=== PATIENT | female | born 1950 | race Caucasian/White ===

== ENCOUNTER 2016-04-09 18:07 | Emergency (ER) | payer OTHER ==
[2016-04-09 18:19] VITALS: BP 134/88; TEMP 100.7; BMI 20.9
--- NOTE | 2016-04-09 18:23 | ED.PDOC ---
General ED Provider: Dr. AZRA MARIE JR Chief Complaint: Respiratory Complaint Stated Complaint: GENERAL WEAKNESS FOR THE PAST FOUR DAYS WITH SOB. PAIN ALL OVER. BONES HURT. FELL LAST NIGHT IN BEDROOM. HIT THE BACK OF MY HEAD. also struck left lower back has pain patch on it[ End ]since 04/06 100.7 121 26 90% 134/88 10 Time Seen by Physician: 18:53 Mode of Arrival: Walk-In Information Source: Patient, Family Exam Limitations: No limitations Primary Care Provider: NEREIDA MORRIS Nursing and Triage Documentation Reviewed and Agree: No Review of Systems - Review Of Systems Constitutional: Reports: Chills, Malaise, Weakness, Loss of appetite Eyes: Reports: No symptoms Ears, Nose, Mouth, Throat: Reports: No symptoms Respiratory: Reports: Cough, Short of air Cardiac: Reports: Lightheadedness GI: Reports: Abdominal pain, Diarrhea (couple times a day), Nausea, Vomiting ( two to four times a day) : Reports: No symptoms Musculoskeletal: Reports: Back pain Skin: Reports: No symptoms Neurological: Reports: Anxiety, Weakness Endocrine: Reports: Other All Other Systems: Other Past Medical History - Past Medical History Previously Healthy: No Endocrine: Reports: DM 2, Hypothyroid, Dyslipidemia Cardiovascular: Reports: CAD, Hypertension Respiratory: Reports: COPD Hematological: Reports: None Gastrointestinal: Reports: None Genitourinary: Reports: None, Other (chronic hyponatremia) Neuro/Psych: Reports: CVA, Migraine, Anxiety Musculoskeletal: Reports: Arthritis Cancer: Reports: None Last Menstrual Period: 1993 - Surgical History General Surgical History: Reports: Unknown - Family History Family History: Reports: Unknown - Social History Smoking Status: Current some day smoker Hx Substance Use: No Alcohol Screening: Occasionally - Immunizations Tetanus Shot up to Date: Yes Physical Exam - Physical Exam Appearance: Ill-appearing, Thin Ill-appearing: Moderate Pain Distress: Moderate Eyes: MARIAN, EOMI, Conjunctiva clear ENT: Ears normal, Nose normal, Oropharynx normal Neck: Supple Respiratory: Airway patent, Breath sounds diminished, Crackles (scattered), Rhonchi, Wheezes Cardiovascular: RRR, Pulses normal, No rub, No murmur GI/: Soft, Nontender, No masses, Bowel sounds normal, No Organomegaly Musculoskeletal: Limited strength Skin: Warm Neurological: Sensation intact, Motor intact, Reflexes intact, Cranial nerves intact, Alert, Oriented Psychiatric: Affect appropriate, Mood appropriate Interpretation - EKG Interpretation Time of EKG #1: 18:50 Rate: Tachy Rhythm: Sinus ST Segment: Other (lvh) Physician Notification - Case Discussed Physician Notified: ARTURO Time of Notification: 19:41 (TRANSFER) Physician Notified: JOSH Time of Notification: 19:42 (ACCEPTS ER RELIGIOUS) Critical Care Note - Critical Care Note Total Time (mins): 10 Course - Course Hematology/Chemistry: 04/09/16 18:40 04/09/16 18:40 Orders, Labs, Meds: Lab Review 04/09/16 18:40 WBC 14.17 H RBC 3.78 L Hgb 9.1 L Hct 28.7 L MCV 75.9 L MCH 24.1 L MCHC 31.7 L RDW Coeff of Juancarlos 20.7 H Plt Count 350 Immature Gran % (Auto) 0.6 Neut % (Auto) 90.1 Lymph % (Auto) 4.0 L [place] % (Auto) 5.1 Eos % (Auto) 0.0 Baso % (Auto) 0.2 Immature Gran # (Auto) 0.1 Neut # 12.8 H Lymph # 0.6 [place] # 0.7 Eos # 0.0 Baso # 0.0 Sodium 124 L Potassium 4.1 Chloride 85 L Carbon Dioxide 25 Anion Gap 18.1 BUN 13 Creatinine 0.85 Estimated GFR (MDRD) 68.00 BUN/Creatinine Ratio 15.29 Glucose 181 H Calcium 9.6 Total Bilirubin 0.46 AST 37 ALT 18 Alkaline Phosphatase 81 Total Creatine Kinase 209 CK-MB (CK-2) 4.3 H CK-MB (CK-2) % 2.26241 Troponin I 0.5590 H* B-Natriuretic Peptide 1402 H Total Protein 8.5 H Albumin 3.3 L Globulin 5.2 Albumin/Globulin Ratio 0.63 Influenza A (Rapid) Negative Influenza B (Rapid) Negative Orders Category Date Time Status EKG-(ED ONLY) Stat CARDIO 04/09/16 18:29 Completed ED IV/MEDIPORT/POWERPORT .ONCE EMERGENCY 04/09/16 18:56 Active B-TYPE NATRIURETIC PEPTIDE Stat LAB 04/09/16 18:40 Completed CBC W/ AUTO DIFF Stat LAB 04/09/16 18:40 Completed COMPREHENSIVE METABOLIC PANEL Stat LAB 04/09/16 18:40 Completed CREATINE KINASE Stat LAB 04/09/16 18:40 Completed D-DIMER Stat LAB 04/09/16 18:40 Received MOLECULAR GROUP A STREP Stat LAB 04/09/16 18:40 Results RAPID FLU A/B Stat LAB 04/09/16 18:40 Completed RBC MORPHOLOGY Stat LAB 04/09/16 18:40 Completed STREP SCREEN Stat LAB 04/09/16 18:40 Results TROPONIN I Stat LAB 04/09/16 18:40 Completed TSH [THYROID STIMULATING HORMONE] Stat LAB 04/09/16 17:40 Received UA [URINALYSIS C & S IF INDICATED] Stat LAB 04/09/16 18:30 Uncollected 0.9 % Sodium Chloride [Saline Flush] MEDS 04/09/16 18:56 Ordered 1 syr IVF PRN PRN Sodium Chloride 0.9% [Sodium Chloride] 500 ml MEDS 04/09/16 18:56 Discontinued IV BOLUS CHEST, 1V AP ONLY Stat RADS 04/09/16 18:29 Taken Medications Generic Name Dose Route Start Last Admin Trade Name Freq PRN Reason Stop Dose Admin Sodium Chloride 1 syr 04/09/16 18:56 Saline Flush IVF PRN PRN To flush IV Discontinued Medications Generic Name Dose Route Start Last Admin Trade Name Freq PRN Reason Stop Dose Admin Sodium Chloride 500 mls @ 1,000 mls/hr 04/09/16 18:56 04/09/16 19:25 Sodium Chloride IV 04/09/16 19:25 1,000 mls/hr BOLUS STA Administration Vital Signs: Temp Pulse Resp BP Pulse Ox 04/09/16 18:09 100.7 F H 121 H 26 H 134/88 90 L Departure - Departure Time of Disposition: 19:42 Disposition: TSF SHORT-TRM HOSP Discharge Problem: Acute myocardial infarction Condition: Fair Pt referred to PMD for follow-up: Yes Allergies/Adverse Reactions: Allergies No Known Allergies Allergy (Verified 04/09/16 18:23) Home Medications: Ambulatory Orders Levothyroxine Sodium [Synthroid] 75 mcg PO QDAC 09/16/12 Albuterol Sulfate [Proair Hfa] 2 puff IH Q6H PRN 09/05/14 Potassium Chloride [K-Dur] 20 meq PO DAILY 09/19/15 Sitagliptin Phosphate [Januvia] 100 mg PO DAILY 09/19/15 Metoprolol Tartrate [Lopressor] 25 mg PO DAILY #1 tablet 10/02/15 Aspirin [Aspirin EC] 81 mg PO DAILYWM 12/20/15 Budesonide/Formoterol Fumarate [Symbicort 80-4.5 Mcg Inhaler] 1 puff IH BID 08/29 Duloxetine HCl [Cymbalta] 30 mg PO DAILY 12/20/15 Lorazepam [Ativan] 0.5 mg PO Q8HR PRN 12/20/15 Pantoprazole Sodium [Protonix] 40 mg PO DAILY 12/20/15
[2016-04-09 18:53] LABS: BASOPHILS % (AUTO) 0.2 % (0.0-3.0); HEMATOCRIT 28.7 % (37.0-47.0); HEMOGLOBIN 9.1 g/dl (12.0-16.0); IMMATURE GRANULOCYTE % (AUTO) 0.6 % (0.0-5.0); LYMPHOCYTES # (AUTO) 0.6 K/uL (0.60-3.4); MEAN CORPUSCULAR HEMOGLOBIN 24.1 pg (27.0-31.0); MEAN CORPUSCULAR HGB CONC 31.7 (31.8-35.4); MEAN CORPUSCULAR VOLUME 75.9 fl (81.0-99.0); MONOCYTES # (AUTO) 0.7 K/uL (0.4-2.0); MONOCYTES % (AUTO) 5.1 (0-10); NEUTROPHILS # (AUTO) 12.8 K/ul (2.0-6.9); NEUTROPHILS % (AUTO) 90.1; PLATELET COUNT 350 10^3/uL (140-440); RED BLOOD COUNT 3.78 10^6/ul (4.20-5.40); WHITE BLOOD COUNT 14.17 K/ul (4.6-10.2)
[2016-04-09] MEDS ORDERED: SODIUM CHLORIDE 500 ML IV STA (18:56)
[2016-04-09 18:58] LABS: ANISOCYTOSIS 1+ (NOT PRESENT); HYPOCHROMASIA 1+ (NOT PRESENT)
[2016-04-09 19:01] LABS: FLU INTERNAL QC INTERNAL QC VALID; RAPID FLU A NEGATIVE (NEGATIVE); RAPID FLU B NEGATIVE (NEGATIVE)
[2016-04-09 19:26] LABS: ALBUMIN 3.3 g/dL (3.4-5.0); ALBUMIN/GLOBULIN RATIO 0.63; ANION GAP 18.1; BILIRUBIN,TOTAL 0.46 mg/dL (0.00-1.20); BUN/CREATININE RATIO 15.29; CALCIUM 9.6 mg/dL (8.2-10.2); CREATININE 0.85 mg/dL (0.60-1.30); POTASSIUM 4.1 mmol/L (3.5-5.10); TOTAL PROTEIN 8.5 g/dL (5.8-8.1)
[2016-04-09 19:34] LABS: TROPONIN I 0.559 ng/ml (0.0000-0.4000)
[2016-04-09 19:35] LABS: CREATINE KINASE MB 4.3 ng/ml (0.0-3.6)
[2016-04-09] MEDS ORDERED: ATROVENT 0.02% NEB NEB STA (19:53)
[2016-04-09] MEDS ORDERED: ROCEPHIN 1 GM in SODIUM CHLORIDE 50 ML IV STA (19:54)
[2016-04-09] MEDS ORDERED: ROCEPHIN ONE (20:08)
--- NOTE | 2016-04-10 07:29 | DI ---
EXAM: Single AP view of the chest HISTORY: Chest pain. COMPARISON: Chest x-ray 12/20/2015 FINDINGS: Cardiomediastinal silhouette is unchanged. There is hazy ground-glass opacity noted in th e lateral right upper lobe. Additional areas of ground-glass and airway thickening in the lower lob es are present. There is no pneumothorax or pleural effusion. The osseous structures are unremarka ble. IMPRESSION: Hazy ground-glass opacity in the lateral right upper lobe with ground-glass opacities i n the lower lungs with mild airway thickening consistent with airways inflammation/infection and kerri pected developing right upper lobe pneumonia. Follow-up to resolution is recommended.
== END 2016-04-09 20:29 | disposition short-term general hospital (02) ==
LOC: ED 18:07
DX: I21.3 ST elevation (STEMI) myocardial infarction of unspecified site (principal); S09.90XA Unspecified injury of head, initial encounter; S39.92XA Unspecified injury of lower back, initial encounter; R10.9 Unspecified abdominal pain; R19.7 Diarrhea, unspecified; R11.2 Nausea with vomiting, unspecified; E11.9 Type 2 diabetes mellitus without complications; E03.9 Hypothyroidism, unspecified; E78.5 Hyperlipidemia, unspecified; I25.10 Atherosclerotic heart disease of native coronary artery without angina pectoris; I10 Essential (primary) hypertension; R52 Pain, unspecified; J44.9 Chronic obstructive pulmonary disease, unspecified; F17.210 Nicotine dependence, cigarettes, uncomplicated; Z79.899 Other long term (current) drug therapy; Z86.73 Personal history of transient ischemic attack (TIA), and cerebral infarction without residual deficits; W19.XXXA Unspecified fall, initial encounter
CPT/HCPCS: 36415; 80053; 82550; 82553; 83880; 84443; 84484; 85008; 85025; 85379; 87651; 87804; 87880; 93005; 93010; 94640; 96361; 96365; 99285

== ENCOUNTER 2016-04-09 20:32 | Outpatient (CLI) | payer OTHER ==
[2016-04-09 18:19] VITALS: BMI 20.9
== END 2016-04-09 20:33 | disposition home or self-care (01) ==
LOC: AMBL 20:32
PROVIDERS: ATTEND Family Medicine
DX: J44.1 Chronic obstructive pulmonary disease with (acute) exacerbation (principal); R53.1 Weakness

== ENCOUNTER 2016-08-28 12:11 | Emergency (ER) | payer OTHER ==
[2016-08-28 12:14] VITALS: BP 154/84; TEMP 98.1; BMI 21.7
[2016-08-28] MEDS ORDERED: DECADRON 4 MG/ML SDV IM STA (13:13)
[2016-08-28] MEDS ORDERED: ZITHROMAX PO STA (13:14)
[2016-08-28] MEDS ORDERED: DUONEB NEB STA (13:14)
[2016-08-28 13:46] LABS: BASOPHILS % (AUTO) 0.4 % (0.0-3.0); EOSINOPHILS % (AUTO) 0.1 % (0.0-7.0); HEMATOCRIT 32.6 % (37.0-47.0); HEMOGLOBIN 10.9 g/dl (12.0-16.0); IMMATURE GRANULOCYTE % (AUTO) 0.4 % (0.0-5.0); LYMPHOCYTES # (AUTO) 0.6 K/uL (0.60-3.4); MEAN CORPUSCULAR HEMOGLOBIN 28.9 pg (27.0-31.0); MEAN CORPUSCULAR HGB CONC 33.4 (31.8-35.4); MEAN CORPUSCULAR VOLUME 86.5 fl (81.0-99.0); MONOCYTES # (AUTO) 0.3 K/uL (0.4-2.0); MONOCYTES % (AUTO) 4.9 (0-10); NEUTROPHILS # (AUTO) 5.8 K/ul (2.0-6.9); NEUTROPHILS % (AUTO) 85.2; PLATELET COUNT 287 10^3/uL (140-440); RED BLOOD COUNT 3.77 10^6/ul (4.20-5.40); WHITE BLOOD COUNT 6.76 K/ul (4.6-10.2)
--- NOTE | 2016-08-28 14:07 | DI ---
EXAM: Chest one view, frontal view only. HISTORY: Cough. Chronic obstructive pulmonary disease. COMPARISON: 04/09/2016. FINDINGS: The heart size is normal. Atherosclerotic calcifications are present. There is no pulmo nary vascular congestion. The lungs are clear save for calcified granulomatous changes. No pleural effusion or pneumothorax is seen. No acute osseous abnormality is identified. IMPRESSION: No acute cardiopulmonary process.
[2016-08-28 14:22] LABS: ALANINE AMINOTRANSFERASE 22 U/L (12-78); ALBUMIN 4.5 g/dL (3.4-5.0); ALBUMIN/GLOBULIN RATIO 1.18; ALKALINE PHOSPHATASE 49 U/L (53-141); ANION GAP 17.2; ASPARTATE AMINO TRANSFERASE 44 U/L (15-37); BILIRUBIN,TOTAL 0.56 mg/dL (0.00-1.20); BLOOD UREA NITROGEN 11 mg/dL (7-18); CALCIUM 9.7 mg/dL (8.2-10.2); CARBON DIOXIDE 27 mmol/L (23-31); CHLORIDE 97 mmol/L (98-107); CREATINE KINASE 202 U/L; CREATININE 0.78 mg/dL (0.60-1.30); GLUCOSE 120 mg/dL (82-115); POTASSIUM 4.2 mmol/L (3.5-5.10); SODIUM 137 mmol/L (136-145); TOTAL PROTEIN 8.3 g/dL (5.8-8.1)
[2016-08-28 14:24] LABS: CREATINE KINASE MB 2.7 ng/ml (0.0-3.6)
--- NOTE | 2016-08-28 14:40 | ED.PDOC ---
General ED Provider: Dr. LAITH HUDSON Chief Complaint: Weakness Stated Complaint: cough , weak Time Seen by Physician: 12:12 Mode of Arrival: Wheelchair Information Source: Patient Exam Limitations: No limitations Primary Care Provider: NEREIDA MORRIS Nursing and Triage Documentation Reviewed and Agree: Yes Respiratory Complaint Exam - Respiratory Complaint/Exam Symptoms Are: Still present Timing: Intermittent Initial Severity: Moderate Current Severity: Mild Location: Nose, Throat, Chest Character: Reports: Non-productive cough, Dry cough Aggravating: Reports: Recumbent position Alleviating: Reports: Bronchodilators, Spontaneous resolution Associated Signs and Symptoms: Reports: Nasal congestion. Denies: Rapid breathing, Dyspnea, Fever, Chills, Chest pain, Pleuritic chest pain, Wheezing, Hemoptysis, Dizziness, Calf pain, Calf swelling, Edema, URI, Hoarseness, Sinus discomfort, Vomiting, Sore throat, Weight loss, Decreased oral intake, Increased thirst, Increased appetite, Increased urination Related History: Reports: Similar episode History of Healthcare-Acquired Pneumonia: No Pulmonary Embolism Risk Factors: Bedrest Pseudomonas Risk Factors: Reports: Chronic Lung Disease Status Asthmaticus Risk Factors: Reports: None Home Oxygen Use: No Recent Stress Test: No Recent Echo/LV Function: No Current Antibiotic Use: No Current Asthma Medication Use: No Respiratory Distress: None Inadequate Respiratory Effort: No Dysphagia Present: No Stridor Present: No JVD Present: No Accessory Muscle Use: No Retractions: Not Present Sinus Tenderness: None Grunting Respirations: No Kussmaul Respirations: No Differential Diagnoses: Pneumonia, Bronchitis Review of Systems - Review Of Systems Constitutional: Reports: Malaise, Weakness Eyes: Reports: No symptoms Ears, Nose, Mouth, Throat: Reports: No symptoms Respiratory: Reports: Cough Cardiac: Reports: No symptoms GI: Reports: No symptoms : Reports: No symptoms Musculoskeletal: Reports: No symptoms Skin: Reports: No symptoms Neurological: Reports: No symptoms Endocrine: Reports: No symptoms Hematologic/Lymphatic: Reports: No symptoms All Other Systems: Reviewed and Negative Past Medical History - Past Medical History Previously Healthy: No Endocrine: Reports: DM 2, Hypothyroid, Dyslipidemia Cardiovascular: Reports: CAD, Hypertension Respiratory: Reports: COPD Hematological: Reports: None Gastrointestinal: Reports: None Genitourinary: Reports: None, Other (chronic hyponatremia) Neuro/Psych: Reports: CVA, Migraine, Anxiety Musculoskeletal: Reports: Arthritis Cancer: Reports: None Last Menstrual Period: n/a - Surgical History General Surgical History: Reports: Unknown - Family History Family History: Reports: Unknown - Social History Smoking Status: Current some day smoker Hx Substance Use: No Alcohol Screening: Occasionally Physical Exam - Physical Exam Appearance: Well-appearing, No pain distress, Well-nourished Eyes: MARIAN, EOMI, Conjunctiva clear ENT: Ears normal, Nose normal, Oropharynx normal Respiratory: Airway patent, Breath sounds clear, Breath sounds equal, Respirations nonlabored Cardiovascular: RRR, Pulses normal, No rub, No murmur GI/: Soft, Nontender, No masses, Bowel sounds normal, No Organomegaly Musculoskeletal: Normal strength, ROM intact, No edema, No calf tenderness Skin: Warm, Dry, Normal color Neurological: Sensation intact, Motor intact, Reflexes intact, Cranial nerves intact, Alert, Oriented Psychiatric: Affect appropriate, Mood appropriate Critical Care Note - Critical Care Note Total Time (mins): 0 Course - Course Hematology/Chemistry: 08/28/16 13:35 08/28/16 13:35 Orders, Labs, Meds: Lab Review 08/28/16 13:35 WBC 6.76 RBC 3.77 L Hgb 10.9 L Hct 32.6 L MCV 86.5 MCH 28.9 MCHC 33.4 RDW Coeff of Juancarlos 18.5 H Plt Count 287 Immature Gran % (Auto) 0.4 Neut % (Auto) 85.2 Lymph % (Auto) 9.0 L [place] % (Auto) 4.9 Eos % (Auto) 0.1 Baso % (Auto) 0.4 Immature Gran # (Auto) 0.0 Neut # 5.8 Lymph # 0.6 [place] # 0.3 L Eos # 0.0 Baso # 0.0 Sodium 137 Potassium 4.2 Chloride 97 L Carbon Dioxide 27 Anion Gap 17.2 BUN 11 Creatinine 0.78 Estimated GFR (MDRD) 74.00 BUN/Creatinine Ratio 14.10 Glucose 120 H Lactic Acid 11.2 Calcium 9.7 Total Bilirubin 0.56 AST 44 H ALT 22 Alkaline Phosphatase 49 L Total Creatine Kinase 202 CK-MB (CK-2) 2.7 CK-MB (CK-2) % 1.40761 Troponin I < 0.0100 Total Protein 8.3 H Albumin 4.5 Globulin 3.8 Albumin/Globulin Ratio 1.18 Procalcitonin < 0.05 Orders Category Date Time Status EKG-(ED ONLY) Stat CARDIO 08/28/16 13:13 Completed NEBULIZER TREATMENT Stat CARDIO 08/28/16 13:14 Completed BLOOD CULTURE Stat LAB 08/28/16 13:35 Received CBC W/ AUTO DIFF Stat LAB 08/28/16 13:35 Completed COMPREHENSIVE METABOLIC PANEL Stat LAB 08/28/16 13:35 Completed CREATINE KINASE Stat LAB 08/28/16 13:35 Completed LACTIC ACID Stat LAB 08/28/16 13:35 Completed PROCALCITONIN Stat LAB 08/28/16 13:35 Completed TROPONIN I Stat LAB 08/28/16 13:35 Completed Azithromycin [Zithromax] MEDS 08/28/16 13:14 Discontinued 500 mg PO ONCE STA Dexamethasone 4 mg/ml Inj [Decadron 4 mg/ml Sdv] MEDS 08/28/16 13:13 Discontinued 4 mg IM ONCE STA Ipratropium/Albuterol Neb [Duoneb] MEDS 08/28/16 13:14 Discontinued 1 vial NEB ONCE STA CHEST, 1V AP ONLY Stat RADS 08/28/16 13:12 Completed Medications Discontinued Medications Generic Name Dose Route Start Last Admin Trade Name Freq PRN Reason Stop Dose Admin Albuterol/Ipratropium 1 vial 08/28/16 13:14 08/28/16 13:21 Duoneb NEB 08/28/16 13:15 1 vial ONCE STA Administration Azithromycin 500 mg 08/28/16 13:14 08/28/16 13:23 Zithromax PO 08/28/16 13:15 500 mg ONCE STA Administration Dexamethasone Sodium Phosphate 4 mg 08/28/16 13:13 08/28/16 13:24 Decadron 4 Mg/Ml Sdv IM 08/28/16 13:14 4 mg ONCE STA Administration Vital Signs: Temp Pulse Resp BP Pulse Ox 08/28/16 12:12 98.1 F 108 H 20 154/84 H 93 L Departure - Departure Time of Disposition: 14:40 Disposition: HOME SELF-CARE Discharge Problem: Chronic obstructive pulmonary disease Qualifiers: COPD type: unspecified COPD Qualifier Code: (J44.9) Chronic obstructive pulmonary disease, unspecified Instructions: COPD (Chronic Obstructive Pulmonary Disease) (ED) Condition: Good Pt referred to PMD for follow-up: No Additional Instructions: Please call your Family Physician as soon as possible to schedule a follow-up appointment. Allergies/Adverse Reactions: Allergies No Known Allergies Allergy (Verified 08/28/16 12:15) Home Medications: Ambulatory Orders Levothyroxine Sodium [Synthroid] 75 mcg PO QDAC 09/16/12 Albuterol Sulfate [Proair Hfa] 2 puff IH Q6H PRN 09/05/14 Sitagliptin Phosphate [Januvia] 100 mg PO DAILY 09/19/15 Aspirin [Aspirin EC] 81 mg PO DAILYWM 12/20/15 Budesonide/Formoterol Fumarate [Symbicort 80-4.5 Mcg Inhaler] 1 puff IH BID 08/29 Duloxetine HCl [Cymbalta] 30 mg PO DAILY 12/20/15 Lorazepam [Ativan] 0.5 mg PO Q8HR PRN 12/20/15 Lisinopril 20 mg PO DAILY 08/28/16 Omeprazole [Prilosec] 40 mg PO DAILY 08/28/16 Simvastatin 20 mg PO BEDTIME 08/28/16 Disposition Discussed With: Patient
== END 2016-08-28 14:56 | disposition home or self-care (01) ==
LOC: ED 12:11
DX: J44.9 Chronic obstructive pulmonary disease, unspecified (principal); E11.9 Type 2 diabetes mellitus without complications; E03.9 Hypothyroidism, unspecified; E78.5 Hyperlipidemia, unspecified; I25.10 Atherosclerotic heart disease of native coronary artery without angina pectoris; I10 Essential (primary) hypertension; Z86.73 Personal history of transient ischemic attack (TIA), and cerebral infarction without residual deficits; F17.210 Nicotine dependence, cigarettes, uncomplicated; Z79.899 Other long term (current) drug therapy
CPT/HCPCS: 36415; 80053; 82550; 82553; 83605; 84145; 84484; 85025; 87040; 93005; 93010; 94640; 96372; 99283

== ENCOUNTER 2016-11-12 10:38 | Emergency (ER) | payer OTHER ==
[2016-11-12 10:58] VITALS: BP 100/64; TEMP 98.7; BMI 24.2
[2016-11-12] MEDS ORDERED: DUONEB NEB STA (11:00)
--- NOTE | 2016-11-12 11:00 | ED.PDOC ---
General ED Provider: Dr. AZRA MARIE JR Chief Complaint: Respiratory Complaint Stated Complaint: saw md at office last week at onset with mild sx--fatigue-- coughing with clear mucous--now mucous is greenish-yellow--uses o2 at 2l all the time--has lump behind rt kneecap--surg to groin area september 10 at [facility]-- also has mottling to both knees and has bruise to left posterior chest--denies fall or injury--. [ End ]98.7 84 20 100% 100/64 10/23 Time Seen by Physician: 10:58 Mode of Arrival: Wheelchair Information Source: Patient Exam Limitations: No limitations Primary Care Provider: NEREIDA MORRIS Nursing and Triage Documentation Reviewed and Agree: No Review of Systems - Review Of Systems Constitutional: Reports: Malaise, Weakness Eyes: Reports: No symptoms Ears, Nose, Mouth, Throat: Reports: No symptoms Respiratory: Reports: Cough Cardiac: Reports: No symptoms GI: Reports: No symptoms : Reports: Pain Musculoskeletal: Reports: Joint pain, Muscle pain Skin: Reports: Bruising, Rash Neurological: Reports: No symptoms, Weakness Endocrine: Reports: No symptoms Hematologic/Lymphatic: Reports: No symptoms All Other Systems: Other Past Medical History - Past Medical History Previously Healthy: No Endocrine: Reports: DM 2, Hypothyroid, Dyslipidemia Cardiovascular: Reports: CAD, Hypertension Respiratory: Reports: COPD Hematological: Reports: None Gastrointestinal: Reports: None Genitourinary: Reports: None, Other (chronic hyponatremia) Neuro/Psych: Reports: CVA, Migraine, Anxiety Musculoskeletal: Reports: Arthritis Cancer: Reports: None Last Menstrual Period: menopause Other Pertinent Past Medical History: BOTH HANDS FOR ARTHRITIS. -surg to groin area september 10, 2016--tubal - Surgical History General Surgical History: Reports: Tubal ligation, Orthopedic (BOTH HANDS FOR ARTHRITIS. ), Other (-surg to groin area september 10, 2016) - Family History Family History: Reports: Unknown - Social History Smoking Status: Current some day smoker, Heavy tobacco smoker Hx Substance Use: No Alcohol Screening: Occasionally Physical Exam - Physical Exam Appearance: Ill-appearing Ill-appearing: Mild Pain Distress: Mild Eyes: MARIAN, EOMI, Conjunctiva clear ENT: Ears normal, Nose normal, Oropharynx normal Neck: Supple Respiratory: Airway patent, Breath sounds clear, Breath sounds equal, Respirations nonlabored Cardiovascular: RRR, Pulses normal, No rub, No murmur GI/: Soft, Tender, Mass (CONSISTENT WITH VASCULAR STENT) Musculoskeletal: Normal strength, ROM intact, No edema, No calf tenderness Skin: Warm, Dry Neurological: Sensation intact, Motor intact Interpretation - Radiology Interpretation Radiology Interpretation By: Radiologist Radiology Results: No acute changes Exam Interpreted: CXR Radiology Interpretation By: Radiologist Radiology Results: No acute changes Exam Interpreted: CT Scan (chest no clots COPD changes) - EKG Interpretation Time of EKG #1: 11:10 Rate: Normal Rhythm: Sinus Ectopy: None [place]: NL ST Segment: Normal Critical Care Note - Critical Care Note Total Time (mins): 0 Course - Course Hematology/Chemistry: 11/12/16 11:28 11/12/16 11:28 Orders, Labs, Meds: Lab Review 11/12/16 11/12/16 11:15 11:28 WBC 5.71 RBC 3.32 L Hgb 9.5 L Hct 29.7 L MCV 89.5 MCH 28.6 MCHC 32.0 RDW Coeff of Juancarlos 15.5 H Plt Count 283 Immature Gran % (Auto) 0.5 Neut % (Auto) 73.9 Lymph % (Auto) 15.1 [place] % (Auto) 8.9 Eos % (Auto) 1.1 Baso % (Auto) 0.5 Immature Gran # (Auto) 0.0 Neut # 4.2 Lymph # 0.9 Arthur # 0.5 Eos # 0.1 Baso # 0.0 D-Dimer (Manual) 1993.62 Puncture Site R rad O2 Saturation 100.0 ABG pH 7.530 H* ABG pCO2 28.5 L ABG pO2 150.0 H ABG HCO3 23.9 ABG Total CO2 25 ABG Base Excess 1 Juancarlos Test + O2 Delivery Device Nc Oxygen Liter Flow 2.00 Sodium 135 L Potassium 4.5 Chloride 96 L Carbon Dioxide 21 L Anion Gap 22.5 BUN 8 Creatinine 0.74 Estimated GFR (MDRD) 79.00 BUN/Creatinine Ratio 10.81 Glucose 98 Lactic Acid 8.8 Calcium 9.7 Total Bilirubin 0.36 AST 29 ALT 16 Alkaline Phosphatase 95 Total Creatine Kinase 307 CK-MB (CK-2) 4.7 H CK-MB (CK-2) % 1.35151 Troponin I < 0.0100 B-Natriuretic Peptide 77 Total Protein 8.1 Albumin 3.9 Globulin 4.2 Albumin/Globulin Ratio 0.93 Procalcitonin < 0.05 Orders Category Date Time Status ABG DRAW REQUEST Stat CARDIO 11/12/16 10:59 Completed EKG-(ED ONLY) Stat CARDIO 11/12/16 10:58 Completed NEBULIZER TREATMENT Stat CARDIO 11/12/16 11:11 Completed NPO REMINDER: IMAGING ONCE CARE 11/12/16 12:44 Completed ED APPLY O2 .ONCE EMERGENCY 11/12/16 10:58 Active ED SILK SCREENER APPLIED .ONCE EMERGENCY 11/12/16 10:58 Active ED IV/MEDIPORT/POWERPORT .ONCE EMERGENCY 11/12/16 10:58 Active ABG Stat LAB 11/12/16 11:15 Completed B-TYPE NATRIURETIC PEPTIDE Stat LAB 11/12/16 11:28 Completed BLOOD CULTURE Stat LAB 11/12/16 11:28 Received CBC W/ AUTO DIFF Stat LAB 11/12/16 11:28 Completed COMPREHENSIVE METABOLIC PANEL Stat LAB 11/12/16 11:28 Completed CREATINE KINASE Stat LAB 11/12/16 11:28 Completed D-DIMER Stat LAB 11/12/16 11:28 Completed LACTIC ACID Stat LAB 11/12/16 11:28 Completed PROCALCITONIN Stat LAB 11/12/16 11:28 Completed SPUTUM CULTURE Stat LAB 11/12/16 14:50 Received TROPONIN I Stat LAB 11/12/16 11:28 Completed 0.9 % Sodium Chloride [Saline Flush] MEDS 11/12/16 10:58 Discontinued 1 syr IVF PRN PRN Albuterol Sulfate 0.083% Neb [Albuterol 0.083% Neb] MEDS 11/12/16 11:11 Discontinued 1 vial NEB ONCE STA Ipratropium/Albuterol Neb [Duoneb] MEDS 11/12/16 11:00 Discontinued 1 vial NEB ONCE STA CHEST, 1V AP ONLY Stat RADS 11/12/16 10:[address] CHEST PE PROTOCOL Stat RADS 11/12/16 12:43 Completed Medications Discontinued Medications Generic Name Dose Route Start Last Admin Trade Name Freq PRN Reason Stop Dose Admin Albuterol Sulfate 1 vial 11/12/16 11:11 11/12/16 11:21 Albuterol 0.083% Neb NEB 11/12/16 11:12 1 vial ONCE STA Administration Albuterol/Ipratropium 1 vial 11/12/16 11:00 11/12/16 14:43 Duoneb NEB 11/12/16 11:01 Not Given ONCE STA Sodium Chloride 1 syr 11/12/16 10:58 Saline Flush IVF PRN PRN To flush IV Vital Signs: Temp Pulse Resp BP Pulse Ox 11/12/16 10:49 98.7 F 84 20 100/64 100 Departure - Departure Time of Disposition: 14:41 Disposition: HOME SELF-CARE Discharge Problem: COPD exacerbation Instructions: COPD (Chronic Obstructive Pulmonary Disease) (ED) Condition: Good Pt referred to PMD for follow-up: Yes Additional Instructions: antibiotic until gone continue inhalers daily recheck PMD one week return if worse Prescriptions: Sulfamethoxazole/Trimethoprim [Bactrim Ds Tablet] 1 tab PO Q12HR #20 tablet Guaifenesin/Codeine Phosphate [Robitussin AC Syrup] 10 ml PO Q6H PRN #240 ml PRN Reason: Cough Allergies/Adverse Reactions: Allergies No Known Allergies Allergy (Verified 11/12/16 10:57) Home Medications: Ambulatory Orders Levothyroxine Sodium [Synthroid] 75 mcg PO QDAC 09/16/12 Albuterol Sulfate [Proair Hfa] 2 puff IH Q6H PRN 09/05/14 Sitagliptin Phosphate [Januvia] 100 mg PO DAILY 09/19/15 Aspirin [Aspirin EC] 81 mg PO DAILYWM 12/20/15 Budesonide/Formoterol Fumarate [Symbicort 80-4.5 Mcg Inhaler] 1 puff IH BID 08/29 Duloxetine HCl [Cymbalta] 30 mg PO DAILY 12/20/15 Lorazepam [Ativan] 0.5 mg PO Q8HR PRN 12/20/15 Lisinopril 20 mg PO DAILY 08/28/16 Omeprazole [Prilosec] 40 mg PO DAILY 08/28/16 Simvastatin 20 mg PO BEDTIME 08/28/16 Guaifenesin/Codeine Phosphate [Robitussin AC Syrup] 10 ml PO Q6H PRN #240 ml Sulfamethoxazole/Trimethoprim [Bactrim Ds Tablet] 1 tab PO Q12HR #20 tablet
[2016-11-12] MEDS ORDERED: ALBUTEROL 0.083% NEB NEB STA (11:11)
[2016-11-12 11:30] LABS: ABG BASE EXCESS 1 (-2.0-2.0); ABG HCO3 23.9 (22.0-26.0); ABG PCO2 28.5 mmHg (35-45); ABG TCO2 25 (22.0-28.0)
[2016-11-12 11:32] LABS: BASOPHILS % (AUTO) 0.5 % (0.0-3.0); EOSINOPHILS # (AUTO) 0.1 K/ul (0.0-0.7); EOSINOPHILS % (AUTO) 1.1 % (0.0-7.0); HEMATOCRIT 29.7 % (37.0-47.0); HEMOGLOBIN 9.5 g/dl (12.0-16.0); IMMATURE GRANULOCYTE % (AUTO) 0.5 % (0.0-5.0); LYMPHOCYTES # (AUTO) 0.9 K/uL (0.60-3.4); LYMPHOCYTES % (AUTO) 15.1 (10.0-50.0); MEAN CORPUSCULAR HEMOGLOBIN 28.6 pg (27.0-31.0); MEAN CORPUSCULAR VOLUME 89.5 fl (81.0-99.0); MONOCYTES # (AUTO) 0.5 K/uL (0.4-2.0); MONOCYTES % (AUTO) 8.9 (0-10); NEUTROPHILS # (AUTO) 4.2 K/ul (2.0-6.9); NEUTROPHILS % (AUTO) 73.9; PLATELET COUNT 283 10^3/uL (140-440); RED BLOOD COUNT 3.32 10^6/ul (4.20-5.40); WHITE BLOOD COUNT 5.71 K/ul (4.6-10.2)
--- NOTE | 2016-11-12 12:01 | DI ---
EXAM: Chest one view, frontal view only. HISTORY: Chest pain. COMPARISON: 08/28/2016. FINDINGS: The heart size is normal. Atherosclerotic calcifications are present. There is no pulmo nary vascular congestion. The lungs are clear save for calcified granulomatous changes. No pleural effusion or pneumothorax is seen. No acute osseous abnormality is identified. Since the prior crissy dy, there has been no significant interval change. IMPRESSION: No acute cardiopulmonary process.
[2016-11-12 12:10] LABS: ALANINE AMINOTRANSFERASE 16 U/L (12-78); ALBUMIN 3.9 g/dL (3.4-5.0); ALBUMIN/GLOBULIN RATIO 0.93; ALKALINE PHOSPHATASE 95 U/L (53-141); ANION GAP 22.5; ASPARTATE AMINO TRANSFERASE 29 U/L (15-37); BILIRUBIN,TOTAL 0.36 mg/dL (0.00-1.20); BLOOD UREA NITROGEN 8 mg/dL (7-18); BUN/CREATININE RATIO 10.81; CALCIUM 9.7 mg/dL (8.2-10.2); CARBON DIOXIDE 21 mmol/L (23-31); CHLORIDE 96 mmol/L (98-107); CREATINE KINASE 307 U/L; CREATININE 0.74 mg/dL (0.60-1.30); GLUCOSE 98 mg/dL (82-115); POTASSIUM 4.5 mmol/L (3.5-5.10); SODIUM 135 mmol/L (136-145); TOTAL PROTEIN 8.1 g/dL (5.8-8.1)
[2016-11-12 12:12] LABS: CREATINE KINASE MB 4.7 ng/ml (0.0-3.6)
--- NOTE | 2016-11-12 14:06 | CT ---
EXAM: CTA CHEST (PE PROTOCOL) HISTORY: Shortness of breath and positive D-dimer, hyperventilation TECHNIQUE: CTA with intravenous contrast. Multiplanar images were provided with 3-D reconstruction s. 75 mL Omnipaque. COMPARISON: 09/28/2015 FINDINGS: No pulmonary arterial filling defect is identified. There is moderate atherosclerotic disease. No aneurysmal caliber of the thoracic aorta. A few nonspecific lymph nodes in the mediastinum, some whi ch are partially calcified consistent with old granulomatous disease. Lungs are hyperinflated. Evidence of early pulmonary emphysema and scarring in the apices. No obvio us consolidated pneumonia. There is no evidence of active congestive heart failure central pulmonar y edema. There is no pneumothorax or pleural fluid. The bones reveal diffuse degenerative endplate disease with mild scoliosis. Incidental note of a pro minent thyroid gland size with probable nodules. IMPRESSION: 1. No pulmonary arterial thromboembolism is identified. 2. Probable component chronic obstructive pulmonary disease, correlate clinically. No consolidated pneumonia, vascular congestion or interstitial edema. 3. Atherosclerotic disease. 4. Mildly prominent thyroid size with probable nodules. This can be correlated with ultrasound if not previously performed.
== END 2016-11-12 15:00 | disposition home or self-care (01) ==
LOC: ED 10:38
DX: J44.1 Chronic obstructive pulmonary disease with (acute) exacerbation (principal); Z99.81 Dependence on supplemental oxygen; E11.9 Type 2 diabetes mellitus without complications; E03.9 Hypothyroidism, unspecified; E78.5 Hyperlipidemia, unspecified; I25.10 Atherosclerotic heart disease of native coronary artery without angina pectoris; I10 Essential (primary) hypertension; E87.1 Hypo-osmolality and hyponatremia; S20.212A Contusion of left front wall of thorax, initial encounter; F17.210 Nicotine dependence, cigarettes, uncomplicated; Z79.899 Other long term (current) drug therapy; Z86.73 Personal history of transient ischemic attack (TIA), and cerebral infarction without residual deficits
CPT/HCPCS: 36415; 80053; 82550; 82553; 82803; 83605; 83880; 84145; 84484; 85025; 85379; 87040; 87070; 93005; 93010; 94640; 99283

== ENCOUNTER 2017-01-25 10:50 | Emergency (ER) ==
[2017-01-25] MEDS ORDERED: SOLU-MEDROL 125 MG IVP STA (10:51)
[2017-01-25] MEDS ORDERED: DUONEB NEB STA (10:52)
[2017-01-25 11:24] LABS: ABG PCO2 36.4 mmHg (35-45); ABG PH 7.454 (7.35-7.45)
[2017-01-25 11:25] LABS: ABG BASE EXCESS 2 (-2.0-2.0); ABG HCO3 25.5 (22.0-26.0); ABG TCO2 27 (22.0-28.0)
[2017-01-25 11:39] LABS: BASOPHILS % (AUTO) 0.2 % (0.0-3.0); HEMATOCRIT 20.6 % (37.0-47.0); HEMOGLOBIN 6.4 g/dl (12.0-16.0); IMMATURE GRANULOCYTE % (AUTO) 1.8 % (0.0-5.0); LYMPHOCYTES # (AUTO) 0.4 K/uL (0.60-3.4); LYMPHOCYTES % (AUTO) 6.6 (10.0-50.0); MEAN CORPUSCULAR HEMOGLOBIN 26.9 pg (27.0-31.0); MEAN CORPUSCULAR HGB CONC 31.1 (31.8-35.4); MEAN CORPUSCULAR VOLUME 86.6 fl (81.0-99.0); MONOCYTES # (AUTO) 0.4 K/uL (0.4-2.0); MONOCYTES % (AUTO) 5.5 (0-10); NEUTROPHILS # (AUTO) 5.6 K/ul (2.0-6.9); NEUTROPHILS % (AUTO) 85.9; PLATELET COUNT 218 10^3/uL (140-440); RED BLOOD COUNT 2.38 10^6/ul (4.20-5.40); WHITE BLOOD COUNT 6.51 K/ul (4.6-10.2)
[2017-01-25 11:48] LABS: ALBUMIN 3.2 g/dL (3.4-5.0); ALBUMIN/GLOBULIN RATIO 0.89; ANION GAP 15.2; BILIRUBIN,TOTAL 0.22 mg/dL (0.00-1.20); BUN/CREATININE RATIO 18.03; CALCIUM 8.6 mg/dL (8.2-10.2); CREATININE 0.61 mg/dL (0.60-1.30); POTASSIUM 4.2 mmol/L (3.5-5.10); TOTAL PROTEIN 6.8 g/dL (5.8-8.1)
[2017-01-25 12:05] LABS: FLU INTERNAL QC INTERNAL QC VALID; RAPID FLU A NEGATIVE (NEGATIVE); RAPID FLU B NEGATIVE (NEGATIVE)
[2017-01-25 13:28] LABS: OCCULT BLOOD INTERNAL QC 1 INTERNAL QC VALID; OCCULT BLOOD INTERNAL QC 2 INTERNAL QC VALID; OCCULT BLOOD INTERNAL QC 3 INTERNAL QC VALID; OCCULT BLOOD SAMPLE 1 POSITIVE (NEGATIVE); OCCULT BLOOD SAMPLE 2 NO SPECIMEN RECEIVED (NEGATIVE); OCCULT BLOOD SAMPLE 3 NO SPECIMEN RECEIVED (NEGATIVE)
[2017-01-25 13:32] VITALS: BMI 33.4
--- NOTE | 2017-01-25 13:48 | CT ---
EXAM: CT abdomen pelvis without contrast HISTORY: Abdominal pain COMPARISON: 12/20/2015 TECHNIQUE: Serial axial images of the abdomen pelvis were performed from the lung bases through the inferior pelvis without contrast. These were viewed in multiple planes. Axial scans acquired at 5 mm slice thicknesses. MPR coronal and sagittal sequences completed FINDINGS: Abdomen. Images of the lower thorax show no pulmonary infiltrate. There is no intrperitoneal free air. Liver spleen are normal size. There is steatosis of the liver. There is no cholelithiasis or biliary jose cruz darlene dilatation. There is no acute inflammation the pancreas. Adrenal glands stable. There is no re nal calcification. No obstruction of either kidney ureter is seen. Bladder smooth in contour. There is extensive aortic atherosclerotic calcification as well as some calcification of mesenteric v essels. There is no small bowel obstruction. No there is no pericecal inflammation. Imaging of the GI tract is limited without contrast. Pelvis. There is no free fluid. No adenopathy. No hernia seen. Skeletal structures. There is spondylolysis at L5 with grade 1 spondylolisthesis L5-1 S1. There is narrowing the L5 S1 disc space. Impression 1. There is no renal calcification. No obstruction of either kidney or ureter. 2. No bowel obstruction or localized acute inflammation. Evaluation GI tract is limited without con trast. 3. Extensive or advanced atherosclerotic changes involving aorta and mesenteric vessels. 4. Spondylolysis or pars defect L5 with grade 1 anterolisthesis L5 on S1. Moderate degenerative james nges L5-S1 disc space.
--- NOTE | 2017-01-25 13:59 | CT ---
EXAM: CT chest without contrast HISTORY: Short of breath COMPARISON: CT 11/12/2016 TECHNIQUE: Serial axial images of the chest were obtained from the lung apices to the upper abdomen without contrast. These were viewed in multiple planes. FINDINGS: Left thyroid lobe is slightly prompt compared the right. There is no mediastinal or hilar adenopathy. There are multiple coronary artery calcifications. No cardiac chamber enlargement seen . There is no pericardial or pleural effusion. The lungs appear mildly hyperinflated with possible mild centrilobular emphysema. There is some thickening of the bronchial newton of the lingular lobe. There is a 0.43 cm ground-glass nodule right middle lobe. There is a calcified 0.22 cm pulmonary n odule lingular lobe.. Impression 1. No lobar consolidation or pneumonia is seen. There is slight thickening of the respiratory bronch ial newton in the lingular lobe suggesting mild bronchitis. 2. Lungs appear slightly hyperinflated possible chronic obstructive pulmonary disease. 3. Extensive coronary artery calcification. 4. There is a 0.43 cm ground-glass nodule right middle lobe. Follow up CT in 12 months may be helpf ul to further assess/confirm stability. 5. Slightly prominent left compared right thyroid lobe. Follow-up thyroid ultrasound could be obtai earle if not previously performed
--- NOTE | 2017-01-25 14:01 | ED.PDOC ---
General ED Provider: Dr. LAITH HUDSON Chief Complaint: Shortness of Air Stated Complaint: shortness of breath Time Seen by Physician: 11:00 Mode of Arrival: Walk-In Information Source: Patient, EMT Exam Limitations: No limitations Primary Care Provider: NEREIDA MORRIS Nursing and Triage Documentation Reviewed and Agree: Yes Respiratory Complaint Exam - Shortness of Air Complaint/Exam Onset/Duration: chronic worse today dark stools off and on on plavix Symptoms Are: Still present Timing: Intermittent Initial Severity: Mild Current Severity: Mild Character: Reports: Dyspnea on exertion Aggravating: Reports: Recumbent position Alleviating: Reports: Bronchodilators, Upright position Associated Signs and Symptoms: Reports: Cough, Wheezing, Nasal congestion. Denies: Chest pain with cough, Chest pain, Fever, Chills, Diaphoresis, Dizziness , Calf pain, Calf swelling, Edema, Rapid breathing, Labored breathing, Decreased intake Related History: Reports: Similar episode (copd) Pulmonary Embolism Risk Factors: Reports: Bedrest, Smoking Pseudomonas Risk Factors: Reports: Chronic Lung Disease Tuberculosis Risk Factors: Reports: Chronic Resp. Faliure Home Oxygen Use: Yes Recent Stress Test: No Recent Echo/LV Function: No Stridor Present: No Tracheal Deviation: No Subcutaneous Emphysema: No Accessory Muscle Use: No Retractions: Not Present Diminished Breath Sounds: No Prolonged Expiratory Phase: Yes Unable to Speak Full Sentences: No Fatigue: No Leg Swelling: No Jt's Sign Present: No Grunting Respirations: No Differential Diagnoses: Airway Obstruction, CHF, Pulmonary Edema, COPD Exacerbation, Pneumonia Review of Systems - Review Of Systems Constitutional: Reports: Malaise, Weakness Eyes: Reports: No symptoms Ears, Nose, Mouth, Throat: Reports: No symptoms Respiratory: Reports: Cough, Short of air Cardiac: Reports: No symptoms GI: Reports: No symptoms : Reports: No symptoms Musculoskeletal: Reports: No symptoms Skin: Reports: No symptoms Neurological: Reports: No symptoms Endocrine: Reports: No symptoms Hematologic/Lymphatic: Reports: No symptoms All Other Systems: Reviewed and Negative Past Medical History - Past Medical History Previously Healthy: No Endocrine: Reports: DM 2, Hypothyroid, Dyslipidemia Cardiovascular: Reports: CAD, Hypertension Respiratory: Reports: COPD Hematological: Reports: None Gastrointestinal: Reports: None Genitourinary: Reports: None, Other (chronic hyponatremia) Neuro/Psych: Reports: CVA, Migraine, Anxiety Musculoskeletal: Reports: Arthritis Cancer: Reports: None Last Menstrual Period: N/A Other Pertinent Past Medical History: BOTH HANDS FOR ARTHRITIS. -surg to groin area september 10, 2016--tubal - Surgical History General Surgical History: Reports: Tubal ligation, Orthopedic (BOTH HANDS FOR ARTHRITIS. ), Other (-surg to groin area september 10, 2016) - Family History Family History: Reports: Unknown - Social History Smoking Status: Current some day smoker, Heavy tobacco smoker Hx Substance Use: No Alcohol Screening: None - Immunizations Tetanus Shot up to Date: Yes Physical Exam - Physical Exam Appearance: Ill-appearing Ill-appearing: Moderate Eyes: MARIAN, EOMI, Conjunctiva clear ENT: Ears normal, Nose normal, Oropharynx normal Respiratory: Rhonchi, Wheezes Cardiovascular: RRR, Pulses normal, No rub, No murmur GI/: Soft, Nontender, No masses, Bowel sounds normal, No Organomegaly Musculoskeletal: Normal strength, ROM intact, No edema, No calf tenderness Skin: Warm, Dry, Normal color Neurological: Sensation intact, Motor intact, Reflexes intact, Cranial nerves intact, Alert, Oriented Psychiatric: Affect appropriate, Mood appropriate Physician Notification - Case Discussed Physician Notified: pmd Time of Notification: 14:01 Critical Care Note - Critical Care Note Total Time (mins): 0 Course - Course Hematology/Chemistry: 01/25/17 11:23 01/25/17 11:23 Orders, Labs, Meds: Lab Review 01/25/17 01/25/17 01/25/17 10:50 11:00 11:23 WBC 6.51 RBC 2.38 L Hgb 6.4 L Hct 20.6 L MCV 86.6 MCH 26.9 L MCHC 31.1 L RDW Coeff of Juancarlos 19.2 H Plt Count 218 Immature Gran % (Auto) 1.8 Neut % (Auto) 85.9 Lymph % (Auto) 6.6 L [place] % (Auto) 5.5 Eos % (Auto) 0.0 Baso % (Auto) 0.2 Immature Gran # (Auto) 0.1 Neut # 5.6 Lymph # 0.4 L [place] # 0.4 Eos # 0.0 Baso # 0.0 Puncture Site Lrad O2 Saturation 99.0 ABG pH 7.454 H ABG pCO2 36.4 ABG pO2 114.0 H ABG HCO3 25.5 ABG Total CO2 27 ABG Base Excess 2 Juancarlos Test + O2 Delivery Device Nc Oxygen Liter Flow 2.50 Sodium Potassium Chloride Carbon Dioxide Anion Gap BUN Creatinine Estimated GFR (MDRD) BUN/Creatinine Ratio Glucose Calcium Total Bilirubin AST ALT Alkaline Phosphatase Total Protein Albumin Globulin Albumin/Globulin Ratio Stl Occult Blood (IFOB) Stool Occult Blood #2 Stool Occult Blood #3 Influenza A (Rapid) Negative Influenza B (Rapid) Negative 01/25/17 01/25/17 11:23 12:50 WBC RBC Hgb Hct MCV MCH MCHC RDW Coeff of Juancarlos Plt Count Immature Gran % (Auto) Neut % (Auto) Lymph % (Auto) [place] % (Auto) Eos % (Auto) Baso % (Auto) Immature Gran # (Auto) Neut # Lymph # [place] # Eos # Baso # Puncture Site O2 Saturation ABG pH ABG pCO2 ABG pO2 ABG HCO3 ABG Total CO2 ABG Base Excess Juancarlos Test O2 Delivery Device Oxygen Liter Flow Sodium 125 L Potassium 4.2 Chloride 91 L Carbon Dioxide 23 Anion Gap 15.2 BUN 11 Creatinine 0.61 Estimated GFR (MDRD) 99.00 BUN/Creatinine Ratio 18.03 Glucose 126 H Calcium 8.6 Total Bilirubin 0.22 AST 30 ALT 17 Alkaline Phosphatase 62 Total Protein 6.8 Albumin 3.2 L Globulin 3.6 Albumin/Globulin Ratio 0.89 Stl Occult Blood (IFOB) Positive Stool Occult Blood #2 No specimen received Stool Occult Blood #3 No specimen received Influenza A (Rapid) Influenza B (Rapid) Orders Category Date Time Status ABG DRAW REQUEST Stat CARDIO 01/25/17 10:51 Completed EKG-(ED ONLY) Stat CARDIO 01/25/17 10:51 Completed NEBULIZER TREATMENT Stat CARDIO 01/25/17 10:52 Completed ED IV/MEDIPORT/POWERPORT .ONCE EMERGENCY 01/25/17 10:51 Active ABG Stat LAB 01/25/17 10:50 Completed CBC W/ AUTO DIFF Stat LAB 01/25/17 11:23 Completed COMPREHENSIVE METABOLIC PANEL Stat LAB 01/25/17 11:23 Completed MOLECULAR GROUP A STREP Stat LAB 01/25/17 11:00 Results OCCULT BLOOD, STOOL Stat LAB 01/25/17 12:50 Completed Packed Cells [PACKED CELLS] Stat LAB 01/25/17 13:50 Ordered RAPID FLU A/B Stat LAB 01/25/17 11:00 Completed STREP SCREEN Stat LAB 01/25/17 11:00 Results TYPE AND SCREEN Stat LAB 01/25/17 13:50 Ordered 0.9 % Sodium Chloride [Saline Flush] MEDS 01/25/17 10:51 Active 1 syr IVF PRN PRN Ipratropium/Albuterol Neb [Duoneb] MEDS 01/25/17 10:52 Discontinued 1 vial NEB ONCE STA Methylprednisolone Sod Succ/Pf [Solu-Medrol 125 mg] MEDS 01/25/17 10:51 Discontinued [address]P ONCE [address] ABDOMEN/PELVIS WO CONTRAST Stat RADS 01/25/17 13:[address] CHEST W/O CONTRAST Stat RADS 01/25/17 13:05 Ordered Medications Generic Name Dose Route Start Last Admin Trade Name Freq PRN Reason Stop Dose Admin Sodium Chloride 1 syr 01/25/17 10:51 01/25/17 11:14 Saline Flush IVF 1 syr PRN PRN Administration To flush IV Discontinued Medications Generic Name Dose Route Start Last Admin Trade Name Freq PRN Reason Stop Dose Admin Albuterol/Ipratropium 1 vial 01/25/17 10:52 01/25/17 11:00 Duoneb NEB 01/25/17 10:53 1 vial ONCE STA Administration Methylprednisolone Sodium Succinate 125 mg 01/25/17 10:51 01/25/17 11:14 Solu-Medrol 125 Mg IVP 01/25/17 10:52 125 mg ONCE STA Administration Vital Signs: Temp Pulse Resp BP Pulse Ox 01/25/17 10:51 98.3 F 106 H 22 121/52 L 100 Departure - Departure Time of Disposition: 14:01 Disposition: TSF SHORT-TRM HOSP Discharge Problem: COPD (chronic obstructive pulmonary disease) Qualifiers: Emphysema type: panlobular Anemia Qualifiers: Anemia type: unspecified type Qualified Code(s): D64.9 - Anemia, unspecified Instructions: Anemia (ED) Condition: Good Pt referred to PMD for follow-up: Yes Additional Instructions: Please call your Family Physician as soon as possible to schedule a follow-up appointment. Allergies/Adverse Reactions: Allergies No Known Allergies Allergy (Verified 01/25/17 10:55) Home Medications: Ambulatory Orders Levothyroxine Sodium [Synthroid] 75 mcg PO QDAC 09/16/12 Albuterol Sulfate [Proair Hfa] 2 puff IH Q6H PRN 09/05/14 Sitagliptin Phosphate [Januvia] 100 mg PO DAILY 09/19/15 Aspirin [Aspirin EC] 81 mg PO DAILYWM 12/20/15 Budesonide/Formoterol Fumarate [Symbicort 80-4.5 Mcg Inhaler] 1 puff IH BID 08/29 Duloxetine HCl [Cymbalta] 30 mg PO DAILY 12/20/15 Lorazepam [Ativan] 0.5 mg PO Q8HR PRN 12/20/15 Lisinopril 20 mg PO DAILY 08/28/16 Omeprazole [Prilosec] 40 mg PO DAILY 08/28/16 Simvastatin 20 mg PO BEDTIME 08/28/16 Guaifenesin/Codeine Phosphate [Robitussin AC Syrup] 10 ml PO Q6H PRN #240 ml Sulfamethoxazole/Trimethoprim [Bactrim Ds Tablet] 1 tab PO Q12HR #20 tablet
[2017-01-25 15:21] VITALS: TEMP 98.2
[2017-01-25 15:36] VITALS: BP 109/61
== END 2017-01-25 15:42 | disposition short-term general hospital (02) ==
LOC: ED 10:50
DX: J43.1 Panlobular emphysema (principal); D64.9 Anemia, unspecified; R06.02 Shortness of breath; K92.2 Gastrointestinal hemorrhage, unspecified; R53.1 Weakness; F17.210 Nicotine dependence, cigarettes, uncomplicated; E11.9 Type 2 diabetes mellitus without complications; E03.9 Hypothyroidism, unspecified; E78.5 Hyperlipidemia, unspecified; I25.10 Atherosclerotic heart disease of native coronary artery without angina pectoris; I10 Essential (primary) hypertension; Z86.73 Personal history of transient ischemic attack (TIA), and cerebral infarction without residual deficits; Z79.899 Other long term (current) drug therapy
CPT/HCPCS: 36415; 36430; 80053; 82272; 82803; 85025; 86850; 86900; 86922; 87651; 87804; 87880; 93005; 93010; 94640; 96365; 96374; 96375; 99285

== ENCOUNTER 2017-02-09 06:32 | Inpatient (IN) | payer OTHER ==
[2017-02-09] MEDS ORDERED: SOLU-MEDROL 125 MG IVP STA (07:09)
[2017-02-09] MEDS ORDERED: DUONEB NEB STA ×2 (07:09→10:32)
[2017-02-09 07:28] LABS: ABG BASE EXCESS 1 (-2.0-2.0); ABG HCO3 25.2 (22.0-26.0); ABG PH 7.418 (7.35-7.45); ABG TCO2 26 (22.0-28.0)
[2017-02-09 07:49] LABS: BASOPHILS % (AUTO) 0.1 % (0.0-3.0); IMMATURE GRANULOCYTE % (AUTO) 0.9 % (0.0-5.0); LYMPHOCYTES # (AUTO) 0.6 K/uL (0.60-3.4); LYMPHOCYTES % (AUTO) 8.2 (10.0-50.0); MEAN CORPUSCULAR HEMOGLOBIN 25.8 pg (27.0-31.0); MEAN CORPUSCULAR HGB CONC 29.6 (31.8-35.4); MEAN CORPUSCULAR VOLUME 87.1 fl (81.0-99.0); MONOCYTES # (AUTO) 0.6 K/uL (0.4-2.0); MONOCYTES % (AUTO) 7.8 (0-10); NEUTROPHILS # (AUTO) 6.3 K/ul (2.0-6.9); PLATELET COUNT 494 10^3/uL (140-440); RED BLOOD COUNT 1.63 10^6/ul (4.20-5.40); WHITE BLOOD COUNT 7.65 K/ul (4.6-10.2)
[2017-02-09 07:53] LABS: HEMOGLOBIN 4.2 g/dl (12.0-16.0)
[2017-02-09 07:54] LABS: HEMATOCRIT 14.2 % (37.0-47.0)
--- NOTE | 2017-02-09 08:02 | ED.PDOC ---
General ED Provider: Dr. LAITH HUDSON Chief Complaint: Shortness of Air Stated Complaint: shortness of breath Time Seen by Physician: 07:00 (seen with nursing staff) Mode of Arrival: Ambulance Information Source: Patient, EMT Primary Care Provider: NEREIDA MORRIS Nursing and Triage Documentation Reviewed and Agree: Yes (had colonscopy recently ) Review of Systems - Review Of Systems Constitutional: Reports: Malaise, Weakness Eyes: Reports: No symptoms Ears, Nose, Mouth, Throat: Reports: No symptoms Respiratory: Reports: Cough, Short of air, Wheezing Cardiac: Reports: No symptoms GI: Reports: No symptoms : Reports: No symptoms Musculoskeletal: Reports: No symptoms Skin: Reports: No symptoms Neurological: Reports: Weakness Endocrine: Reports: No symptoms Hematologic/Lymphatic: Reports: No symptoms All Other Systems: Reviewed and Negative Past Medical History - Past Medical History Previously Healthy: No Endocrine: Reports: DM 2, Hypothyroid, Dyslipidemia Cardiovascular: Reports: CAD, Hypertension Respiratory: Reports: COPD Hematological: Reports: None Gastrointestinal: Reports: None Genitourinary: Reports: None, Other (chronic hyponatremia) Neuro/Psych: Reports: CVA, Migraine, Anxiety Musculoskeletal: Reports: Arthritis Cancer: Reports: None Last Menstrual Period: post menopausal Other Pertinent Past Medical History: BOTH HANDS FOR ARTHRITIS. -surg to groin area september 10, 2016--tubal - Surgical History General Surgical History: Reports: Tubal ligation, Orthopedic (BOTH HANDS FOR ARTHRITIS. ), Other (-surg to groin area september 10, 2016) - Family History Family History: Reports: Unknown - Social History Smoking Status: Current every day smoker, Light tobacco smoker Hx Substance Use: No Alcohol Screening: None - Immunizations Tetanus Shot up to Date: Yes Physical Exam - Physical Exam Appearance: Ill-appearing Ill-appearing: Moderate Pain Distress: Moderate Eyes: MARIAN, EOMI, Conjunctiva clear ENT: Ears normal, Nose normal, Oropharynx normal Respiratory: Breath sounds diminished, Rhonchi, Wheezes Cardiovascular: RRR, Pulses normal, No rub, No murmur GI/: Soft, Nontender, No masses, Bowel sounds normal, No Organomegaly Musculoskeletal: Normal strength, ROM intact, No edema, No calf tenderness Skin: Warm, Dry, Normal color Neurological: Sensation intact, Motor intact, Reflexes intact, Cranial nerves intact, Alert, Oriented Psychiatric: Affect appropriate, Mood appropriate Interpretation - Mail Agent Rate: Normal (to sinus tach on monitor rate 104 to 110) Rhythm: Sinus - EKG Interpretation Rate: Normal Rhythm: Sinus [place]: NL ST Segment: Normal ST Segment: Normal Critical Care Note - Critical Care Note Total Time (mins): 0 Course - Course Hematology/Chemistry: 02/09/17 07:25 Orders, Labs, Meds: Lab Review 02/09/17 02/09/17 07:20 07:25 WBC 7.65 RBC 1.63 L Hgb 4.2 L* Hct 14.2 L* MCV 87.1 MCH 25.8 L MCHC 29.6 L RDW Coeff of Juancarlos 16.9 H Plt Count 494 H Immature Gran % (Auto) 0.9 Neut % (Auto) 83.0 Lymph % (Auto) 8.2 L [place] % (Auto) 7.8 Eos % (Auto) 0.0 Baso % (Auto) 0.1 Immature Gran # (Auto) 0.1 Neut # 6.3 Lymph # 0.6 [place] # 0.6 Eos # 0.0 Baso # 0.0 Puncture Site R rad O2 Saturation 98.0 ABG pH 7.418 ABG pCO2 39.0 ABG pO2 107.0 H ABG HCO3 25.2 ABG Total CO2 26 ABG Base Excess 1 Juancarlos Test + O2 Delivery Device Nc Oxygen Liter Flow 2.00 Orders Category Date Time Status ABG DRAW REQUEST Stat CARDIO 02/09/17 07:08 Ordered EKG-(ED ONLY) Stat CARDIO 02/09/17 07:07 Ordered NEBULIZER TREATMENT Stat CARDIO 02/09/17 07:09 Ordered PRBC LEUKOREDUCED ONCE CARE 02/09/17 07:58 Ordered ED IV/MEDIPORT/POWERPORT .ONCE EMERGENCY 02/09/17 07:07 Ordered ABG Stat LAB 02/09/17 07:08 Ordered BLOOD CULTURE Stat LAB 02/09/17 07:07 Ordered CBC W/ AUTO DIFF Stat LAB 02/09/17 07:07 Ordered COMPREHENSIVE METABOLIC PANEL Stat LAB 02/09/17 07:07 Ordered CREATINE KINASE Stat LAB 02/09/17 07:07 Ordered LACTIC ACID Stat LAB 02/09/17 07:25 Received PARTIAL THROMBOPLASTIN TIME Stat LAB 02/09/17 07:07 Ordered PROCALCITONIN Stat LAB 02/09/17 Ordered PT WITH INR Stat LAB 02/09/17 07:07 Ordered Packed Cells [PACKED CELLS] Stat LAB 02/09/17 07:56 Ordered TROPONIN I Stat LAB 02/09/17 07:07 Ordered TYPE AND SCREEN Stat LAB 02/09/17 07:56 Stop Req URINALYSIS C & S IF INDICATED Stat LAB 02/09/17 07:07 Uncollected 0.9 % Sodium Chloride [Saline Flush] MEDS 02/09/17 07:07 Ordered 1 syr IVF PRN PRN Ipratropium/Albuterol Neb [Duoneb] MEDS 02/09/17 07:09 Stat 1 vial NEB ONCE STA Methylprednisolone Sod Succ/Pf [Solu-Medrol 125 mg] MEDS 02/09/17 07:09 Stat 125 mg IVP ONCE STA CT ABDOMEN/PELVIS WO CONTRAST Stat RADS 02/09/17 07:[address] CHEST W/O CONTRAST Stat RADS 02/09/17 07:08 Ordered Medications Generic Name Dose Route Start Last Admin Trade Name Freq PRN Reason Stop Dose Admin Sodium Chloride 1 syr 02/09/17 07:07 02/09/17 07:38 Saline Flush IVF 1 syr PRN PRN Administration To flush IV Discontinued Medications Generic Name Dose Route Start Last Admin Trade Name Freq PRN Reason Stop Dose Admin Albuterol/Ipratropium 1 vial 02/09/17 07:09 02/09/17 07:27 Duoneb NEB 02/09/17 07:10 1 vial ONCE STA Administration Methylprednisolone Sodium Succinate 125 mg 02/09/17 07:09 02/09/17 07:38 Solu-Medrol 125 Mg IVP 02/09/17 07:10 125 mg ONCE STA Administration Vital Signs: Temp Pulse Resp BP Pulse Ox 02/09/17 06:33 99 F 95 H 21 86/56 L 100 Departure - Departure Time of Disposition: 09:00 Disposition: HOME SELF-CARE Discharge Problem: COPD exacerbation Anemia Qualifiers: Anemia type: unspecified type Qualified Code(s): D64.9 - Anemia, unspecified Instructions: Anemia (ED) Condition: Good Pt referred to PMD for follow-up: Yes Additional Instructions: Please call your Family Physician as soon as possible to schedule a follow-up appointment. Allergies/Adverse Reactions: Allergies No Known Allergies Allergy (Verified 02/09/17 06:44) Home Medications: Ambulatory Orders Levothyroxine Sodium [Synthroid] 75 mcg PO QDAC 09/16/12 Albuterol Sulfate [Proair Hfa] 2 puff IH Q6H PRN 09/05/14 Sitagliptin Phosphate [Januvia] 100 mg PO DAILY 09/19/15 Aspirin [Aspirin EC] 81 mg PO DAILYWM 12/20/15 Budesonide/Formoterol Fumarate [Symbicort 80-4.5 Mcg Inhaler] 1 puff IH BID 08/29 Duloxetine HCl [Cymbalta] 30 mg PO DAILY 12/20/15 Lorazepam [Ativan] 0.5 mg PO Q8HR PRN 12/20/15 Lisinopril 20 mg PO DAILY 08/28/16 Omeprazole [Prilosec] 40 mg PO DAILY 08/28/16 Simvastatin 20 mg PO BEDTIME 08/28/16 Nicotine [Nicoderm Cq] 1 each TD DAILY 02/09/17 Prednisolone Acetate [Pred Forte] 1 drop OP DAILY 02/09/17
[2017-02-09 08:10] LABS: PARTIAL THROMBOPLASTIN TIME 22.6 SEC (23.9-40.0); PROTHROMBIN TIME 9.7 SEC (9.3-11.0)
--- NOTE | 2017-02-09 08:15 | CT ---
EXAM: CT chest without contrast. HISTORY: Cough. Shortness of breath. COMPARISON: 01/25/2017. TECHNIQUE: Multiple axial images of the chest were obtained without intravenous contrast. Images we re reformatted in the sagittal and coronal planes. FINDINGS: Evaluation for lymphadenopathy is limited by lack of intravenous contrast. Calcified and noncalcified mediastinal lymph nodes are stable. Atherosclerotic calcifications noted. Heart size i s at the upper limits of normal. There is no pericardial effusion. Mild interlobular septal thickening seen bilaterally with scattered ground glass opacities in both justin ngs. No consolidation, pleural effusion or pneumothorax identified. Calcified granulomatous changes noted. Small hiatal hernia noted. Degenerative changes present in the spine. Old bilateral rib fractures n oted. IMPRESSION: Interlobular septal thickening and bilateral ground-glass opacities suggest pulmonary edema.
--- NOTE | 2017-02-09 08:20 | CT ---
EXAM: CT of the abdomen pelvis without contrast History: Abdominal pain. Comparison: CT abdomen pelvis 01/25/2017 Technique: Multiplanar CT images through the abdomen pelvis were obtained without the administration of IV contrast Findings: Motion artifact limits evaluation. Interlobular septal thickening seen at the lung bases. No acute osseous abnormalities. Bilateral L5 spondylosis with grade 1 spondylolisthesis. Severe de generative disc disease at L5-S1. Severe atherosclerotic vascular disease. No discrete gallstones identified by CT. The liver is enla rged and fatty. Spleen is not enlarged. No renal stones and no hydronephrosis. Tiny hiatal hernia. Stable small benign left adrenal adenoma. Right adrenal gland is unremarkable. No phyllis peripancr eatic inflammation. Mild to moderate bladder distension but no bladder wall thickening. No free air . Scattered colonic stool. No significantly dilated loops of bowel. No ascites. Somewhat atrophic uterus. Scarring again seen within the right inguinal canal probably from prior surgery. Impression: 1. Within limitations of the motion artifact, no acute intra-abdominal or pelvic process identified. 2. Atherosclerotic vascular disease. 3. Enlarged fatty liver. 4. Interlobular septal thickening at the lung bases could represent edema or interstitial pneumonia.
[2017-02-09] MEDS ORDERED: ATIVAN PO PRN (08:21)
[2017-02-09] MEDS ORDERED: HUMULIN R SUBCUT STA (08:22)
[2017-02-09] MEDS ORDERED: SODIUM CHLORIDE 1,000 ML IV SCH (08:30)
[2017-02-09 08:45] LABS: ALBUMIN 2.8 g/dL (3.4-5.0); ALBUMIN/GLOBULIN RATIO 0.8; ANION GAP 13.5; BILIRUBIN,TOTAL 0.19 mg/dL (0.00-1.20); BUN/CREATININE RATIO 12.3; CALCIUM 8.4 mg/dL (8.2-10.2); CREATININE 0.65 mg/dL (0.60-1.30); POTASSIUM 4.5 mmol/L (3.5-5.10); TOTAL PROTEIN 6.3 g/dL (5.8-8.1); TROPONIN I 0.277 ng/ml (0.0000-0.4000)
[2017-02-09] MEDS ORDERED: PRED FORTE 1% OPTH SOL OP SCH (09:00)
[2017-02-09] MEDS ORDERED: PRILOSEC PO SCH (09:00)
[2017-02-09] MEDS ORDERED: SOLU-MEDROL 40 MG IVP SCH (09:00)
[2017-02-09 09:40] VITALS: BMI 26.4
[2017-02-09] MEDS ORDERED: DUONEB NEB SCH ×2 (10:01→12:00)
[2017-02-09 10:11] VITALS: TEMP 98.6
[2017-02-09] MEDS ORDERED: ATIVAN IVP STA ×2 (10:48→12:48)
[2017-02-09] MEDS ORDERED: BENADRYL IVP STA (10:49)
[2017-02-09] MEDS ORDERED: HUMULIN R SUBCUT PRN (11:03)
--- NOTE | 2017-02-09 11:07 | DI ---
EXAM: Chest one view, frontal view only. HISTORY: Shortness of breath. COMPARISON: CT earlier the same day. FINDINGS: Heart size is at the upper limits of normal. Atherosclerotic calcifications are present. Calcified granulomatous changes noted. Mild interstitial prominence seen bilaterally. No pleural e ffusion or pneumothorax identified. IMPRESSION: Mild interstitial prominence which could be due to edema or pneumonia
[2017-02-09] MEDS ORDERED: ANECTINE IVP STA (12:09)
[2017-02-09] MEDS ORDERED: AMIDATE IVP STA (12:09)
[2017-02-09] MEDS ORDERED: NORCURON IVP STA (12:47)
[2017-02-09] MEDS ORDERED: LASIX IVP STA (12:50)
[2017-02-09] MEDS ORDERED: ROCEPHIN 1 GM in SODIUM CHLORIDE 50 ML IV STA (12:51)
[2017-02-09] MEDS ORDERED: SUBLIMAZE IVP STA ×2 (12:52→13:13)
--- NOTE | 2017-02-09 13:05 | DI ---
EXAM: CHEST FRONTAL VIEW HISTORY: Intubation. COMPARISON: 02/09/2017 at 1052 hours FINDINGS: An endotracheal tube has been placed. There were three radiographs provided. The image l abeled tube placement 3 demonstrated the endotracheal tube ending just below the level of the clavicl es. Chronic-appearing lung changes with mild central interstitial infiltrates noted without noticeab le change. Stable mediastinum. Atherosclerotic disease. No pneumothorax. IMPRESSION: The image labeled tube placement 3 demonstrated the endotracheal tube ending just below t he level of the clavicles. Stable pulmonary infiltrates.
[2017-02-09 13:07] LABS: ABG BASE EXCESS -11 (-2.0-2.0); ABG HCO3 19.8 (22.0-26.0); ABG PCO2 76.7 mmHg (35-45); ABG PH 7.021 (7.35-7.45); ABG TCO2 22 (22.0-28.0)
[2017-02-09 13:29] LABS: ABG BASE EXCESS -7 (-2.0-2.0); ABG HCO3 20.5 (22.0-26.0); ABG PCO2 46.8 mmHg (35-45); ABG PH 7.249 (7.35-7.45); ABG TCO2 22 (22.0-28.0)
[2017-02-09 15:35] VITALS: BP 133/76
[2017-02-09] MEDS ORDERED: ZOCOR PO SCH (21:00)
[2017-02-09] MEDS ORDERED: NON-FORMULARY MEDICATION (Simvastatin [Simvastatin] 20 MG) PO SCH ×22 (21:00)
[2017-02-10] MEDS ORDERED: SYNTHROID PO SCH (06:30)
== END 2017-02-09 13:40 | disposition short-term general hospital (02) | DRG 189 ==
LOC: ED 06:32 → SCU 08:36
PROVIDERS: ADMIT Family Medicine; ATTEND Family Medicine
PROC: 30233N1 Transfusion of Nonautologous Red Blood Cells into Peripheral Vein, Percutaneous Approach (ICD-10-PCS; principal; 2017-02-09)
DX: J96.21 Acute and chronic respiratory failure with hypoxia (principal); J44.1 Chronic obstructive pulmonary disease with (acute) exacerbation; D64.9 Anemia, unspecified; F17.200 Nicotine dependence, unspecified, uncomplicated; Z99.81 Dependence on supplemental oxygen; Z79.02 Long term (current) use of antithrombotics/antiplatelets; Z79.899 Other long term (current) drug therapy
CPT/HCPCS: 36415; 36430; 80053; 82550; 82803; 83605; 84145; 84484; 85025; 85610; 85730; 86850; 86900; 86922; 87040; 87081; 93005; 93010; 94002; 94640; 96374; 99284

== ENCOUNTER 2017-05-12 09:14 | Emergency (ER) ==
[2017-05-12 09:21] VITALS: BP 150/80; TEMP 99; BMI 23.7
--- NOTE | 2017-05-12 09:25 | ED.PDOC ---
General ED Provider: Dr. LEONCIO BACK Chief Complaint: Respiratory Complaint Stated Complaint: Cough, congestion, flu like symptoms for 1 week Time Seen by Physician: 09:26 Mode of Arrival: Walk-In Information Source: Patient Exam Limitations: No limitations Primary Care Provider: NEREIDA MORRIS Nursing and Triage Documentation Reviewed and Agree: Yes Reviewed sepsis parameters & appropriate labs ordered?: Yes System Inflammatory Response Syndrome: Not Applicable Sepsis Protocol: For patient's 13 years and over: Temp is 96.8 and below OR 101 and greater Pulse >90 BPM Resp >20/minute Acutely Altered Mental Status Are patient's symptoms suggestive of a new infection, such as: -Pneumonia -Skin, Soft Tissue -Endocarditis -UTI -Bone, Joint Infection -Implantable Device -Acute Abdominal Infection -Wound Infection -Meningitis -Blood Stream Catheter Infection -Unknown System Inflammatory Response Syndrome: Not Applicable Respiratory Complaint Exam - Respiratory Complaint/Exam Onset/Duration: one week ago; cough, congestion Symptoms Are: Still present Timing: Constant Initial Severity: Moderate Current Severity: Moderate Location: Nose, Throat, Chest Character: Reports: Productive cough Aggravating: Reports: URI, Recumbent position Alleviating: Reports: None Associated Signs and Symptoms: Reports: Wheezing (COPD) Related History: Reports: Similar episode (COPD; has appointment with Lung doctor this AM) History of Healthcare-Acquired Pneumonia: No Related Surgical History: Reports: None Review of Systems - Review Of Systems Constitutional: Reports: Malaise Eyes: Reports: No symptoms Ears, Nose, Mouth, Throat: Reports: Nose discharge Respiratory: Reports: Cough, Wheezing (COPD; on O2 regularly) Cardiac: Reports: No symptoms All Other Systems: Reviewed and Negative Past Medical History - Past Medical History Previously Healthy: No Endocrine: Reports: DM 2, Hypothyroid, Dyslipidemia Cardiovascular: Reports: CAD, Hypertension Respiratory: Reports: COPD Hematological: Reports: None Gastrointestinal: Reports: None Genitourinary: Reports: None, Other (chronic hyponatremia) Neuro/Psych: Reports: CVA, Migraine, Anxiety Musculoskeletal: Reports: Arthritis Cancer: Reports: None Last Menstrual Period: na Other Pertinent Past Medical History: BOTH HANDS FOR ARTHRITIS. -surg to groin area september 10, 2016--tubal - Surgical History General Surgical History: Reports: Tubal ligation, Orthopedic (BOTH HANDS FOR ARTHRITIS. ), Other (-surg to groin area september 10, 2016) - Family History Family History: Reports: Unknown - Social History Smoking Status: Current some day smoker Hx Substance Use: No Alcohol Screening: Occasionally - Immunizations Tetanus Shot up to Date: Yes Physical Exam - Physical Exam Appearance: Ill-appearing Ill-appearing: Mild Pain Distress: None Eyes: MARIAN, EOMI ENT: Ears normal, Nose normal, Oropharynx normal Neck: Supple Respiratory: Airway patent, Breath sounds equal (with inspiratory transmitted wheezing sounds; no expiratory wheezing), Respirations nonlabored Cardiovascular: RRR, Pulses normal Musculoskeletal: Normal strength, ROM intact Skin: Warm, Dry, Normal color Neurological: Sensation intact, Motor intact, Alert, Oriented Psychiatric: Affect appropriate, Mood appropriate Interpretation - Radiology Interpretation Radiology Interpretation By: Radiologist Radiology Results: No acute changes Exam Interpreted: CXR Critical Care Note - Critical Care Note Total Time (mins): 12 Course - Course Orders, Labs, Meds: Orders Category Date Time Status CHEST, 2 VIEWS PA & LAT Stat RADS 05/12/17 09:42 Completed Vital Signs: Temp Pulse Resp BP Pulse Ox 05/12/17 09:16 99 F 105 H 20 150/80 H 93 L Departure - Departure Time of Disposition: 10:24 Disposition: HOME SELF-CARE Discharge Problem: Cough COPD (chronic obstructive pulmonary disease) Qualifiers: COPD type: COPD with acute exacerbation Qualified Code(s): J44.1 - Chronic obstructive pulmonary disease with (acute) exacerbation Instructions: Emphysema (ED), COPD (Chronic Obstructive Pulmonary Disease) (ED) Condition: Good Pt referred to PMD for follow-up: Yes (Call for appointment) IPMP verified?: Yes Additional Instructions: Take medications as prescribed; follow up with primary care. Prescriptions: Doxycycline Hyclate 100 mg PO BID #20 capsule Methylprednisolone [Medrol Dosepak] 4 mg PO DAILY #1 tab.ds.pk Allergies/Adverse Reactions: Allergies No Known Allergies Allergy (Verified 05/12/17 09:23) Home Medications: Ambulatory Orders Levothyroxine Sodium [Synthroid] 75 mcg PO QDAC 09/16/12 Albuterol Sulfate [Proair Hfa] 2 puff IH Q6H PRN 09/05/14 Sitagliptin Phosphate [Januvia] 100 mg PO DAILY 09/19/15 Aspirin [Aspirin EC] 81 mg PO DAILYWM 12/20/15 Budesonide/Formoterol Fumarate [Symbicort 80-4.5 Mcg Inhaler] 1 puff IH BID 08/29 Duloxetine HCl [Cymbalta] 30 mg PO DAILY 12/20/15 Lorazepam [Ativan] 0.5 mg PO Q8HR PRN 12/20/15 Lisinopril 20 mg PO DAILY 08/28/16 Omeprazole [Prilosec] 40 mg PO DAILY 08/28/16 Simvastatin 20 mg PO BEDTIME 08/28/16 Nicotine [Nicoderm Cq] 1 each TD DAILY 02/09/17 Doxycycline Hyclate 100 mg PO BID #20 capsule 05/12/17 Methylprednisolone [Medrol Dosepak] 4 mg PO DAILY #1 tab.ds.pk 05/12/17 Disposition Discussed With: Patient (Spouse)
--- NOTE | 2017-05-12 10:01 | DI ---
EXAM: PA and lateral views of the chest HISTORY: Cough and shortness of breath COMPARISON: Chest x-ray 02/09/2017 and multiple priors including CT chest 02/09/2017 FINDINGS: The cardiomediastinal silhouette is normal. The lungs are hyperinflated. There is no pne umothorax or pleural effusion. There is no consolidation, nodule or mass. The osseous structures de monstrate mild degenerative disease. IMPRESSION: No acute cardiopulmonary process or consolidation with mild hyperinflation
== END 2017-05-12 10:33 | disposition home or self-care (01) ==
LOC: ED 09:14
DX: J44.1 Chronic obstructive pulmonary disease with (acute) exacerbation (principal); F17.210 Nicotine dependence, cigarettes, uncomplicated
CPT/HCPCS: 99283

== ENCOUNTER 2017-05-18 10:50 | Outpatient (CLI) | END 2017-05-18 10:51 | disposition home or self-care (01) | LOC: LAB 10:50 | PROVIDERS: ATTEND Internal Medicine Hematology & Oncology | DX: I77.9 Disorder of arteries and arterioles, unspecified (principal) | CPT/HCPCS: 36415; 84132 ==

== ENCOUNTER 2017-06-20 09:35 | Emergency (ER) ==
[2017-06-20 09:46] VITALS: BP 105/71; TEMP 97.6; BMI 22.8
--- NOTE | 2017-06-20 10:35 | ED.PDOC ---
General ED Provider: Dr. NEREIDA STEELE Chief Complaint: Extremity Pain/Injury Stated Complaint: Rt Thigh Pain. Onset past Thursday. Was standing considerable time last Thursday cooking. Noted Thursday her rt thigh was sore with worsening next day. No effect on ambulation. Denies symptomatic claudication and demonstrates brief up activity in the exam room without difficulty.Denies changes in skin color of RT LE in comparison of LT LE. Has Vascular surgery last year for RT LE and indicated current symptoms unlike preoperative discomfort. Normally sees Dr Morris in office. Did not see him this week. Time Seen by Physician: 10:00 Mode of Arrival: Wheelchair Information Source: Patient Exam Limitations: No limitations Primary Care Provider: NEREIDA MORRIS Referred to ED by: Other (Self) Nursing and Triage Documentation Reviewed and Agree: Yes Reviewed sepsis parameters & appropriate labs ordered?: Yes System Inflammatory Response Syndrome: Not Applicable Sepsis Protocol: For patient's 13 years and over: Temp is 96.8 and below OR 101 and greater Pulse >90 BPM Resp >20/minute Acutely Altered Mental Status Are patient's symptoms suggestive of a new infection, such as: -Pneumonia -Skin, Soft Tissue -Endocarditis -UTI -Bone, Joint Infection -Implantable Device -Acute Abdominal Infection -Wound Infection -Meningitis -Blood Stream Catheter Infection -Unknown System Inflammatory Response Syndrome: Not Applicable Musculoskeletal Complaint Exam - Lower Extremity Complaint/Exam Location of Pain: Reports: Thigh Mechanism of Injury: Reports: No known trauma Onset/Duration: 6 days Symptoms Are: Still present Onset of Pain: Reports: Immediate Initial Severity: Moderate Current Severity: Moderate Location: Reports: Radiating (Rt inner thigh to the knee) Character: Reports: Aching, Burning Alleviating: Reports: Rest Aggravating: Reports: Movement Associated Signs and Symptoms: Reports: Numbness, Tingling (chronic) Related History: Denies: Similar episode DVT Risk Factors: Denies: Estrogen, Smoking, Prior DVT Septic Arthritis Risk Factors: Reports: None Lower Extremity Findings: Present: Tenderness (proximal inner thigh down medial aspect to knee). Absent: Swelling, Ecchymosis, Abnormal contour, Rotation, Erythema, Warmth NV Bundle Intact Distal to Injury: No Compartment Syndrome Risk Factors: Present: Pain Differential Diagnoses: Strain (`) Review of Systems - Review Of Systems Constitutional: Reports: No symptoms Eyes: Reports: No symptoms Ears, Nose, Mouth, Throat: Reports: No symptoms Respiratory: Reports: No symptoms Cardiac: Reports: No symptoms GI: Reports: No symptoms : Reports: No symptoms Musculoskeletal: Reports: No symptoms, Muscle pain (Thigh ), Other (Thigh pain ) Skin: Reports: No symptoms. Denies: Bruising, Change in color Neurological: Reports: No symptoms. Denies: Anxiety, Depressed, Emotional problems, Cognitive dysfunction, Tonic-Clonic seizures Endocrine: Reports: No symptoms Hematologic/Lymphatic: Reports: No symptoms All Other Systems: Reviewed and Negative Past Medical History - Past Medical History Previously Healthy: No Endocrine: Reports: DM 2, Hypothyroid, Dyslipidemia Cardiovascular: Reports: CAD, Hypertension, Other (chronic hyponatremia( supposedly on fluid restriciton )) Respiratory: Reports: COPD Hematological: Reports: None Gastrointestinal: Reports: None Genitourinary: Reports: None, Other (chronic hyponatremia) Neuro/Psych: Reports: CVA, Migraine, Anxiety Musculoskeletal: Reports: Arthritis Cancer: Reports: None Last Menstrual Period: na Other Pertinent Past Medical History: BOTH HANDS FOR ARTHRITIS. -surg to groin area september 10, 2016--tubal - Surgical History General Surgical History: Reports: Tubal ligation, Orthopedic (BOTH HANDS FOR ARTHRITIS. ), Other (-surg to groin area september 10, 2016) - Family History Family History: Reports: Unknown - Social History Smoking Status: Current every day smoker Hx Substance Use: No Alcohol Screening: Occasionally - Immunizations Tetanus Shot up to Date: Yes Physical Exam - Physical Exam Appearance: Well-appearing, No pain distress, Well-nourished Ill-appearing: Mild Pain Distress: Mild Eyes: MARIAN, EOMI, Conjunctiva clear ENT: Ears normal, Nose normal, Oropharynx normal Respiratory: Airway patent, Breath sounds clear, Breath sounds equal, Respirations nonlabored Cardiovascular: RRR, Pulses normal, No rub, No murmur GI/: Soft, Nontender, No masses, Bowel sounds normal, No Organomegaly Musculoskeletal: Normal strength (Tenderness from proximal rt medial thigh down to inner proximal knee. No localized erythrema, bruising with normal coloration and temperature to touch.), ROM intact (Rt thigh/increase discomfort to internal rotation but normal extension. Neg homans sign), No edema, No calf tenderness (Tenderness along inner thigh from groin extending to medial rt knee) Skin: Warm, Dry, Normal color Neurological: Sensation intact, Motor intact, Reflexes intact, Cranial nerves intact, Alert, Oriented Psychiatric: Affect appropriate, Mood appropriate Interpretation - Radiology Interpretation Radiology Interpretation By: Radiologist Radiology Results: Negative Exam Interpreted: Other Xray Comments: Pelvis, Femur and Knee/sl degenerative joint diseas Radiology Interpretation By: Radiologist (/) Critical Care Note - Critical Care Note Total Time (mins): 0 Course - Course Hematology/Chemistry: 06/20/17 11:10 06/20/17 11:10 Orders, Labs, Meds: Lab Review 06/20/17 06/20/17 11:10 11:10 WBC 3.93 L RBC 3.15 L Hgb 10.8 L Hct 31.7 L MCV 100.6 H MCH 34.3 H MCHC 34.1 RDW Coeff of Juancarlos 15.7 H Plt Count 264 Immature Gran % (Auto) 0.3 Neut % (Auto) 60.0 Lymph % (Auto) 27.7 [place] % (Auto) 9.2 Eos % (Auto) 1.8 Baso % (Auto) 1.0 Immature Gran # (Auto) 0.0 Neut # (Auto) 2.4 Lymph # (Auto) 1.1 [place] # (Auto) 0.4 Eos # (Auto) 0.1 Baso # (Auto) 0.0 Sodium 126 L Potassium 4.5 Chloride 95 L Carbon Dioxide 21 L Anion Gap 14.5 BUN 6 L Creatinine 0.59 L Estimated GFR (MDRD) 102.00 BUN/Creatinine Ratio 10.16 Glucose 98 Calcium 9.6 Total Bilirubin 0.4 AST 25 ALT 14 Alkaline Phosphatase 49 L Total Protein 7.3 Albumin 3.9 Globulin 3.4 Albumin/Globulin Ratio 1.15 Orders Category Date Time Status CBC W/ AUTO DIFF Stat LAB 06/20/17 11:10 Completed CMP [COMPREHENSIVE METABOLIC PANEL] Stat LAB 06/20/17 11:10 Completed FEMUR, RIGHT 2 VIEWS Stat RADS 06/20/17 10:46 Completed KNEE, RIGHT 4 VIEWS Stat RADS 06/20/17 10:48 Completed PELVIS & MATTHEW HIPS Stat RADS 06/20/17 10:44 Completed Vital Signs: Temp Pulse Resp BP Pulse Ox 06/20/17 09:38 97.6 F 103 H 16 105/71 94 L Departure - Departure Time of Disposition: 12:50 Disposition: HOME SELF-CARE Discharge Problem: Muscle strain of right thigh, Hyponatremia, Anemia Instructions: Groin Strain (ED), Arthralgia (ED), Hyponatremia (ED), Iron Deficiency Anemia (ED) Condition: Good Pt referred to PMD for follow-up: Yes IPMP verified?: No Additional Instructions: Advised patient if she develops worsening pain of Rt thigh, develops color changes of the rt leg or foot-follow up in ER Rest Keep leg rested Apply ice pack to areas of pain Take analgesic as suggested Remain fluid restriction as directed 1000 cc /daily and follow up with Dr Grant this next week as planned. Allergies/Adverse Reactions: Allergies No Known Allergies Allergy (Verified 06/20/17 09:45) Home Medications: Ambulatory Orders Levothyroxine Sodium [Synthroid] 75 mcg PO QDAC 09/16/12 Albuterol Sulfate [Proair Hfa] 2 puff IH Q6H PRN 09/05/14 Sitagliptin Phosphate [Januvia] 100 mg PO DAILY 09/19/15 Aspirin [Aspirin EC] 81 mg PO DAILYWM 12/20/15 Budesonide/Formoterol Fumarate [Symbicort 80-4.5 Mcg Inhaler] 1 puff IH BID 08/29 Duloxetine HCl [Cymbalta] 30 mg PO DAILY 12/20/15 Lorazepam [Ativan] 0.5 mg PO Q8HR PRN 12/20/15 Lisinopril 20 mg PO DAILY 08/28/16 Omeprazole [Prilosec] 40 mg PO DAILY 08/28/16 Simvastatin 20 mg PO BEDTIME 08/28/16 Nicotine [Nicoderm Cq] 1 each TD DAILY 02/09/17 Doxycycline Hyclate 100 mg PO BID #20 capsule 05/12/17 Methylprednisolone [Medrol Dosepak] 4 mg PO DAILY #1 tab.ds.pk 05/12/17 Disposition Discussed With: Patient, Family Additional Comments Additional Comments: Discussed findings with patient and her family. Admits to attempts to remain on prescribed fluid restriction daily but indicated she most likely drinks more that advised/. Reviewed case with Dr Bradley who concurs since patient is not symptomatic of hyponatremia-to reiterate fluid restriction and follow up with Dr Grant this next week as planned.
--- NOTE | 2017-06-20 12:03 | DI ---
EXAM: AP view of the pelvis. HISTORY: Pain COMPARISON: 02/09/2017 CT FINDINGS: No fracture or dislocation is identified. There is mild to moderate narrowing of both hips marginal osteophyte formation. There is degenerative enthesopathy of both greater trochanters. Atherosclerot ic calcifications are seen. There is a right iliac vascular stent. Right inguinal surgical clips are seen. IMPRESSION: No acute osseous abnormality. Moderate degenerative changes of the hips.
--- NOTE | 2017-06-20 12:04 | DI ---
EXAM: Two views of the right femur HISTORY: Pain mid thigh COMPARISON: None available FINDINGS: There is joint space loss of the right hip with marginal osteophyte formation. Degenerative enthesopa thy of the greater trochanter is seen. No fracture or dislocation is seen. Atherosclerotic calcifica tions are identified. There is a right iliac stent. IMPRESSION: No acute osseous abnormality. Moderate right hip degenerative joint disease. Atherosclerosis. Right iliac stent.
--- NOTE | 2017-06-20 12:05 | DI ---
EXAM: Four views of the right knee HISTORY: Pain COMPARISON: None available FINDINGS: No fracture or dislocation is identified. There is mild marginal osteophyte formation of the patella . Atherosclerotic calcifications are seen. IMPRESSION: No acute osseous abnormality. Mild patellofemoral degenerative joint disease.
== END 2017-06-20 13:24 | disposition home or self-care (01) ==
LOC: ED 09:35
DX: M79.651 Pain in right thigh (principal); E87.1 Hypo-osmolality and hyponatremia; D64.9 Anemia, unspecified; E11.9 Type 2 diabetes mellitus without complications; E78.5 Hyperlipidemia, unspecified; I25.10 Atherosclerotic heart disease of native coronary artery without angina pectoris; I10 Essential (primary) hypertension; M19.90 Unspecified osteoarthritis, unspecified site; F17.210 Nicotine dependence, cigarettes, uncomplicated; Z79.899 Other long term (current) drug therapy; Z86.73 Personal history of transient ischemic attack (TIA), and cerebral infarction without residual deficits
CPT/HCPCS: 36415; 80053; 85025; 99283

== ENCOUNTER 2018-05-11 10:40 | Outpatient (CLI) ==
--- NOTE | 2018-05-11 11:25 | DI ---
EXAM: Three views of the right shoulder. History: Right shoulder mass. Findings: No acute fracture or dislocation. Mild to moderate narrowing of the right AC joint and ri ght glenohumeral joint with small osteophytes. Atherosclerotic vascular calcifications of the aortic knob. There is calcification along the course of the rotator cuff tendons. Linear nonspecific soft tissue calcifications are seen within the right axilla. Impression: 1. No acute osseous abnormality. 2. Mild to moderate arthritis. 3. Calcific tendonitis of the rotator cuff
== END 2018-05-11 10:41 | disposition home or self-care (01) ==
LOC: RAD 10:40
PROVIDERS: ATTEND Family Medicine
DX: R22.31 Localized swelling, mass and lump, right upper limb (principal)